=== PATIENT | male | born 1955 | race Caucasian/White ===

== ENCOUNTER → 2016-10-14 | Day surgery (SDC) | payer OTHER, BC ==
[~2016-10-14] MED LIST: ASPIR-TRIN325 MG; BENICAR PO; COZAAR100 MG PO; HYDROCODON-ACE1 EAC7 PO; IBUPROFEN200 M1 PO; PENICILLIN V P250 MG PO; PRILOSEC; VICODIN 5/1 TAB 5/50
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
== END | disposition home or self-care (01) ==
LOC: CCSC 06:45
DX: M47.812 Spondylosis without myelopathy or radiculopathy, cervical region (principal)
CPT/HCPCS: J1040; J2250